=== PATIENT | female | born 1975 | race Caucasian/White ===

== ENCOUNTER → 2016-10-24 | Outpatient (CLI) | payer OTHER ==
--- NOTE | 2016-10-24 17:01 | PCVCIMAG ---
APPROVED REPORT Exam: Stress Echocardiogram Indication: Acute CHF, HTN, DM, tobacco use, tachycardia Patient Location: Echo lab Stress Nurse: Nel Mojica RN Status: routine Ht: 5 ft 5 in HR: 84 bpm BP: 114/70 mmHg Rhythm: NSR Procedure The patient underwent an Exercise Stress Test using the Arian Protocol. Blood pressure, heart rate, and EKG were monitored. An Echocardiogram was performed by fuel testing technician in four stages in quad fashion. At peak stress, four selected images were obtained and placed side by side with resting images for comparison. Stress Test Details Stress Test: Exercise stress testing was performed using a Arian protocol. HR Resting HR: 84 bpmMax Heart Rate (APMHR): 181 bpm Max HR Achieved: 118 bpmTarget HR (85% APMHR): 153 bpm % of APMHR: 65 Recovery HR: 85 bpm HR response to stress: Normal HR response to stress BP Resting BP: 114/70 mmHg Max BP: 160/80 mmHg Recovery BP: 154/70 mmHg ECG Resting ECG: Sinus Rhythm Stress ECG: Sinus Rhythm ST Change: Normal Arrhythmia: None Recovery ECG: Sinus Rhythm Recovery ST Change: Normal Recovery Arrhythmia: None Clinical Reason for Termination: Maximal effort, leg fatigue Stress Symptoms: Leg Fatigue Exercise duration: 4 min 31 sec Highest Stage Achieved: Stage 2: 2.5 mph at 12% grade. Pre-Stress Echo The resting Echocardiogram showed normal left ventricular contractility with an estimated Ejection Fraction of about >55%. Normal wall motion in all segments on baseline images. Post-Stress Echo The stress Echocardiogram showed normal left ventricular contractility with an estimated Ejection Fraction of about 65%. Normal augmentation of wall motion in all segments on post stress images. Clinical No clinical or ECG evidence for ischemia. Conclusion Clinical Response: Non-ischemic Exercise Capacity: Below Average Stress ECG Response: Non-ischemic Stress Echo Images: Non-ischemic Mild concentric LVH. Accuracy diminished due to inability to achieve target heart rate. Other Information Study Quality: Adequate <Conclusion> Mild concentric LVH. Accuracy diminished due to inability to achieve target heart rate.
== END | disposition home or self-care (01) ==
LOC: PCVCIMAG 12:55
PROVIDERS: ATTEND Internal Medicine Cardiovascular Disease
DX: I11.0 Hypertensive heart disease with heart failure (principal); I50.9 Heart failure, unspecified; E11.9 Type 2 diabetes mellitus without complications; F17.200 Nicotine dependence, unspecified, uncomplicated; Z98.890 Other specified postprocedural states
CPT/HCPCS: 93325; 93351